=== PATIENT | male | born 1955 | race Caucasian/White ===

== ENCOUNTER 2017-02-01 13:31 | Emergency (ER) | payer SELFPAY ==
[~2017-02-01] VITALS: Ht 180.3 cm; Wt 105.2 kg
[2017-02-01 15:55] LABS: BASOPHIL % 0.4 % (0-2); PLATELET COUNT 139 x10^3mcL (130-400)
[2017-02-01 15:56] LABS: RED CELL DISTRIBUTION WIDTH 14.6 % (11.5-14.5)
[2017-02-01 16:01] LABS: CALCIUM 9.1 mg/dL (8.5-10.1); CHLORIDE SERUM 105 mmol/L (98-107); CREATININE SERUM 1.2 mg/dL (0.7-1.3); GFR1 > 60 mL/min; GLUCOSE SERUM 90 mg/dL (74-106); POTASSIUM SERUM 4.6 mmol/L (3.5-5.1); SODIUM SERUM 141 mmol/L (136-145)
[2017-02-01 16:01] LABS: microscopic required? NO
[2017-02-01 16:14] LABS: ALBUMIN 3.4 g/dL (3.4-5.0); ALKALINE PHOSPHATASE 70 U/L (46-116); ALT/SGPT 27 U/L (16-63); AST/SGOT 30 U/L (15-37); BILIRUBIN TOTAL 1.2 mg/dL (0.20-1.00); T4(THYROXINE) 4.7 ug/dL (4.7-13.3)
[2017-02-01 16:15] LABS: TOTAL PROTEIN, SERUM 6.1 g/dL (6.4-8.2)
[2017-02-01 16:25] LABS: UA SPECIFIC GRAVITY 1.015 (1.005-1.035); urine erythrocyte NEGATIVE (NEGATIVE)
[2017-02-01 16:37] LABS: AMPHETAMINE QUAL UR NONE DETECTED (NEG <=1000)
[2017-02-01 19:11] VITALS: BP 145/92
== END 2017-02-01 19:11 | disposition home or self-care (01) ==
LOC: ED 13:31
PROVIDERS: Emergency Medicine
DX: I50.9 Heart failure, unspecified (principal); I51.7 Cardiomegaly; F17.200 Nicotine dependence, unspecified, uncomplicated; Z71.6 Tobacco abuse counseling
CPT/HCPCS: 83880; J1940; Q0092